=== PATIENT | female | born 1960 | race Caucasian/White ===

== ENCOUNTER 2016-09-05 17:39 | Emergency (ER) | payer MEDICAID ==
[~2016-09-05] VITALS: Ht 167.6 cm; Wt 87.0 kg
[~2016-09-05 17:39] MED LIST: CEPH-368 PO; CYCL5TAB PO; DULO20CA45 PO; FLUO10CA13 PO; FLUO20CA19 PO; HYDR1TAB12 PO; LEVO200T PO; MELO-190 PO; METH4TAB2 PO; OXYC-229 PO; OXYC-302 PO; TRAZ50TA18 PO
[2016-09-05] MEDS ORDERED: DIPHENHYDRAMINE 50 MG/ML, 1ML IVPush ONE (18:00)
[2016-09-05] MEDS ORDERED: SODIUM CHLORIDE FLUSH 10ML SYR IVF ONE (18:00)
[2016-09-05] MEDS ORDERED: ALBUTEROL SULFATE 2.5 MG/3 ML NPPB ONE (18:00)
[2016-09-05] MEDS ORDERED: methylPREDNISolone SOD SUCC 125 MG/2 ML IVPush ONE (18:00)
[2016-09-05] MEDS ORDERED: EPINEPHRINE 1 MG/ML, 1ML IM ONE (18:00)
[2016-09-05] MEDS ORDERED: FAMOTIDINE 20 MG/2 ML IVPush ONE (18:00)
[2016-09-05] MEDS ORDERED: ALBUTEROL SULFATE 2.5 MG/3 ML ONE (18:05)
[2016-09-05] MEDS ORDERED: DIPHENHYDRAMINE 50 MG/ML, 1ML ONE (18:23)
[2016-09-05] MEDS ORDERED: FAMOTIDINE 20 MG/2 ML ONE (18:23)
[2016-09-05] MEDS ORDERED: methylPREDNISolone SOD SUCC 125 MG/2 ML ONE (18:23)
[2016-09-05] MEDS ORDERED: EPINEPHRINE 1 MG/ML, 1ML ONE (18:26)
[2016-09-05] MEDS ORDERED: ALBUTEROL/IPRATROPIUM 2.5MG/0.5MG, 3 ML ONE (19:13)
[2016-09-05 20:16] VITALS: BP 115/68
== END 2016-09-05 20:19 | disposition home or self-care (01) ==
LOC: ED 20:00
DX: T78.40XA Allergy, unspecified, initial encounter (principal); Z88.0 Allergy status to penicillin; E07.9 Disorder of thyroid, unspecified; Y92.9 Unspecified place or not applicable
CPT/HCPCS: 71010; 93005; 96372; 96374; 96375; 99284; J0171; J1200; J2930; J7613; S0028

== ENCOUNTER 2017-09-12 04:52 | Emergency (ER) | payer MEDICARE, MEDICAID ==
[~2017-09-12] VITALS: Ht 167.6 cm; Wt 90.0 kg
[~2017-09-12 04:52] MED LIST changes: -MELO-190 PO; +MELO7.5T31 PO; -OXYC-229 PO; +OXYC-307 PO
[2017-09-12 04:55] VITALS: BP 135/85
== END 2017-09-12 07:48 | disposition home or self-care (01) ==
LOC: ED 06:06
DX: S63.502A Unspecified sprain of left wrist, initial encounter (principal); S60.012A Contusion of left thumb without damage to nail, initial encounter; S80.02XA Contusion of left knee, initial encounter; W01.0XXA Fall on same level from slipping, tripping and stumbling without subsequent striking against object, initial encounter; Y93.89 Activity, other specified; Y99.8 Other external cause status; Y92.009 Unspecified place in unspecified non-institutional (private) residence as the place of occurrence of the external cause
CPT/HCPCS: 99284

== ENCOUNTER → 2018-06-27 | Outpatient (CLI) | payer MEDICARE, MEDICAID ==
[~2018-06-27] MED LIST changes: +CHOL2000 PO; +DULO30CA2 PO; -HYDR1TAB12 PO; +HYDR1TAB13 PO; +LAMO50TA3 PO; -TRAZ50TA18 PO; +TRAZ50TA66 PO
[2018-06-27 13:49] LABS: BASOPHILS # (AUTO) 0.15 x10^3/uL (0-0.1); BASOPHILS % (AUTO) 2 % (0-1); EOSINOPHILS % (AUTO) 1 % (1-7); LYMPHOCYTES # (AUTO) 2.14 x10^3/uL (1-3.4); LYMPHOCYTES % (AUTO) 26 % (22-44); MD NO; MEAN CORPUSCULAR HEMOGLOBIN 32.1 pg (27.0-34.8); MEAN CORPUSCULAR HGB CONC 34.6 g/dL (32.4-35.8); MEAN PLATELET VOLUME 7.9 fL (7.4-10.4); MONOCYTES # (AUTO) 0.65 x10^3/uL (0.2-0.8); MONOCYTES % (AUTO) 8 % (2-9); NEUTROPHILS # (AUTO) 5.28 x10^3/uL (1.8-6.8); NEUTROPHILS % (AUTO) 64 % (42-75); PLATELET COUNT 340 x10^3/uL (130-400); RED BLOOD COUNT 4.88 x10^6/uL (3.82-5.3); RED CELL DISTRIBUTION WIDTH 13.5 % (9.6-15.2)
[2018-06-27 13:59] LABS: INTERNATIONAL NORMALIZED RATIO 0.95 (0.93-1.1)
[2018-06-27 14:01] LABS: ALBUMIN 3.9 g/dL (3.4-5.0); ANION GAP 4 mmol/L (5-15); CALCIUM 9.9 mg/dL (8.5-10.1); CHLORIDE 111 mmol/L (98-107)
[2018-06-27 14:05] LABS: ALANINE AMINOTRANSFERASE 29 U/L (12-78); ALKALINE PHOSPHATASE 99 U/L (45-117); BILIRUBIN,TOTAL 1.2 mg/dL (0.2-1.0); CREATININE 0.65 mg/dL (0.55-1.02); TOTAL PROTEIN 7.4 g/dL (6.4-8.2)
[2018-06-27 14:12] LABS: HEMOGLOBIN A1C 5.7 % (4.2-6.3)
== END | disposition home or self-care (01) ==
LOC: STAR 12:39
PROVIDERS: ATTEND Orthopaedic Surgery
DX: Z01.818 Encounter for other preprocedural examination (principal); M16.0 Bilateral primary osteoarthritis of hip
CPT/HCPCS: 36415; 80053; 83036; 85025; 85610; 85730; 87081; 87806; 93005; G0475

== ENCOUNTER 2018-07-01 09:05 | Inpatient (IN) | payer MEDICARE, MEDICAID ==
[~2018-07-01] VITALS: Ht 167.6 cm; Wt 90.0 kg
[~2018-07-01 09:05] MED LIST changes: -CHOL2000 PO; +EPINEPHRINE 1 MG/ML, 1ML ONE; +KETOROLAC 60 MG/2 ML ONE; +ROPIvacaine/PF 0.2%, 20 ML ONE; +SODIUM CHLORIDE 0.9% 50 ML ONE; +TRANEXAMIC ACID 100 MG/ML, 10ML ONE
[2018-07-01] MEDS ORDERED: ACETAMINOPHEN 500 MG TABLET PO STA (09:38)
[2018-07-01] MEDS ORDERED: LACTATED RINGERS 1,000 ML IV SCH (09:38)
[2018-07-01] MEDS ORDERED: GABAPENTIN 300 MG CAPSULE PO STA (09:38)
[2018-07-01] MEDS ORDERED: CHOL2000 PO (09:42)
[2018-07-01] MEDS ORDERED: FENTANYL PF 250 MCG/5ML ONE (10:25)
[2018-07-01] MEDS ORDERED: MIDAZOLAM 1 MG/ML, 2ML ONE (10:25)
[2018-07-01] MEDS ORDERED: DEXAMETHASONE 4 MG/ML, 1ML ONE (10:26)
[2018-07-01] MEDS ORDERED: CEFAZOLIN 1,000 MG ONE (10:26)
[2018-07-01] MEDS ORDERED: GLYCOPYRROLATE 0.2MG/1ML, 5ML ONE (10:26)
[2018-07-01] MEDS ORDERED: PROPOFOL 10 MG/ML, 20ML ONE (10:26)
[2018-07-01] MEDS ORDERED: LIDOCAINE 4%, 4 ML SYR/CANN TP ONE (10:27)
[2018-07-01] MEDS ORDERED: ONDANSETRON 2MG/ML, 2ML ONE (10:27)
[2018-07-01] MEDS ORDERED: SUCCINYLCHOLINE 20 MG/ML, 10ML ONE (10:27)
[2018-07-01] MEDS ORDERED: NEOSTIGMINE 1 MG/ML, 10ML ONE (10:27)
[2018-07-01] MEDS ORDERED: ROCURONIUM 10MG/ML,5ML ONE (10:27)
[2018-07-01] MEDS ORDERED: ONDANSETRON 2MG/ML, 2ML IV PRN (11:30)
[2018-07-01] MEDS ORDERED: ONDANSETRON ODT 8 MG PO PRN (11:30)
[2018-07-01] MEDS ORDERED: LORazepam 2 MG/ML, 1ML IVPush PRN (11:30)
[2018-07-01] MEDS ORDERED: PROMETHAZINE 25 MG/ML, 1ML IV PRN (11:30)
[2018-07-01] MEDS ORDERED: OXYcodone 5 MG/5 ML ORAL.SOL UDC PO PRN (11:30)
[2018-07-01] MEDS ORDERED: DIAZEPAM 5 MG/ML, 2ML IVPush PRN (11:30)
[2018-07-01] MEDS ORDERED: ALBUTEROL HFA 90 MCG/SPRAY ONE (12:17)
[2018-07-01] MEDS ORDERED: OXYcodone 5 MG/5 ML ORAL.SOL UDC ONE (13:17)
[2018-07-01] MEDS ORDERED: FENTANYL PF 100 MCG/2ML ONE ×2 (13:17→14:00)
[2018-07-01] MEDS: FENTANYL PF 100 MCG/2ML IV PRN ×4 (13:20→14:12)
[2018-07-01] MEDS ORDERED: ACETAMINOPHEN 650 MG/20.3 ML UDC PO PRN (13:30)
[2018-07-01] MEDS ORDERED: ALUMINUM/MAG/SIMETHICONE 30 ML UDC PO PRN (13:30)
[2018-07-01] MEDS ORDERED: HOLD MEDICATION MC PRN (13:30)
[2018-07-01] MEDS ORDERED: DIPHENHYDRAMINE 50 MG CAPSULE PO PRN (13:30)
[2018-07-01] MEDS: ACETAMINOPHEN 325 MG TABLET PO SCH ×3 (13:30→23:13)
[2018-07-01] MEDS ORDERED: DIPHENHYDRAMINE 50 MG/ML, 1ML IVPush PRN (13:30)
[2018-07-01] MEDS ORDERED: ONDANSETRON 2MG/ML, 2ML IVPush PRN (13:30)
[2018-07-01] MEDS ORDERED: MAGNESIUM HYDROXIDE 8%, 30ML UDC PO PRN (13:30)
[2018-07-01] MEDS ORDERED: PROMETHAZINE 12.5 MG SUPP PR PRN (13:30)
[2018-07-01] MEDS ORDERED: PSYLLIUM PACKET PO PRN (13:30)
[2018-07-01] MEDS ORDERED: ONDANSETRON 4 MG TABLET PO PRN (13:30)
[2018-07-01] MEDS ORDERED: TRANEXAMIC ACID 1,000 MG in SODIUM CHLORIDE 0.9% 100 ML IVPB ONE (13:30)
[2018-07-01] MEDS ORDERED: SENNA/DOCUSATE TABLET PO PRN (13:30)
[2018-07-01] MEDS ORDERED: PROMETHAZINE 25 MG/ML, 1ML IM PRN (13:30)
[2018-07-01] MEDS ORDERED: HYDROmorphone 2 MG/ML, 1ML ONE ×2 (13:31→19:25)
[2018-07-01] MEDS: HYDROmorphone 2 MG/ML, 1ML IVPush PRN ×4 (13:32→14:18)
[2018-07-01] MEDS: HYDROmorphone 1 MG/ML, 1ML INJ IVPush PRN ×2 (13:35→19:32)
[2018-07-01] MEDS: D5%-0.45NACL+KCL 20MEQ 1,000 ML IV SCH (15:25)
[2018-07-01] MEDS: KETOROLAC 30 MG/1 ML IV SCH ×2 (15:26→23:13)
[2018-07-01] MEDS: OXYcodone IR 5MG TABLET PO PRN ×2 (17:20→23:13)
[2018-07-01 18:40] VITALS: BP 97/62
[2018-07-01] MEDS: CEFAZOLIN PMX 1GM/50ML 50 ML IVPB SCH (19:31)
[2018-07-01] MEDS: ASPIRIN 81 MG TABLET EC PO SCH (19:31)
[2018-07-01] MEDS: DOCUSATE 100 MG CAPSULE PO SCH (19:31)
[2018-07-01] MEDS ORDERED: GABAPENTIN 300 MG CAPSULE PO SCH (21:00)
[2018-07-02] MEDS: D5%-0.45NACL+KCL 20MEQ 1,000 ML IV SCH (00:56)
[2018-07-02 01:01] VITALS: BP 90/57
[2018-07-02] MEDS: OXYcodone IR 5MG TABLET PO PRN ×2 (03:50→08:34)
[2018-07-02] MEDS: CEFAZOLIN PMX 1GM/50ML 50 ML IVPB SCH (03:50)
[2018-07-02] MEDS: ACETAMINOPHEN 325 MG TABLET PO SCH ×2 (03:50→08:34)
[2018-07-02 03:53] VITALS: BP 100/51
[2018-07-02] MEDS: KETOROLAC 30 MG/1 ML IV SCH (05:51)
[2018-07-02] MEDS ORDERED: DEXAMETHASONE 4 MG/ML, 1ML IVPush ONE (06:00)
[2018-07-02 08:30] VITALS: BP 104/55
[2018-07-02] MEDS: ASPIRIN 81 MG TABLET EC PO SCH (08:33)
[2018-07-02] MEDS: DOCUSATE 100 MG CAPSULE PO SCH (08:34)
[2018-07-02] MEDS ORDERED: TAMSULOSIN 0.4 MG CAP.ER.24H PO SCH (09:00)
[2018-07-02 10:56] VITALS: BP 105/58
== END 2018-07-02 11:29 | disposition home or self-care (01) | DRG 470 ==
LOC: ORIP 09:05 → 4NOR 14:38 → DCLOUNGE 07-02 11:18
PROVIDERS: ADMIT Orthopaedic Surgery; ATTEND Orthopaedic Surgery
PROC: 0SRB03Z Replacement of Left Hip Joint with Ceramic Synthetic Substitute, Open Approach (ICD-10-PCS; principal; 2018-07-01 11:15)
DX: M16.12 Unilateral primary osteoarthritis, left hip (principal); J44.9 Chronic obstructive pulmonary disease, unspecified; Z88.0 Allergy status to penicillin; Z88.5 Allergy status to narcotic agent; Z88.6 Allergy status to analgesic agent
CPT/HCPCS: 36415; 72170; 85014; 85018; 86850; 86900; C1713; G0378; J0171; J0690; J1100; J1170; J1885; J2250; J2405; J2704; J2710; J2795; J3010; J3360; C1776; J0330; J1200; J3480; J7120

== ENCOUNTER 2020-11-04 09:58 | Outpatient (CLI) | payer MEDICARE, MEDICAID ==
[~2020-11-04 09:58] MED LIST changes: +CHOL2000 PO; +CHOL200052 PO; -EPINEPHRINE 1 MG/ML, 1ML ONE; -KETOROLAC 60 MG/2 ML ONE; +LAMO25TA52 PO; +LEVO200T5 PO; +LORA0.5T PO; +MELO15TA24 PO; -OXYC-302 PO; -OXYC-307 PO; +OXYC-380 PO; +OXYC1TAB14 PO; -ROPIvacaine/PF 0.2%, 20 ML ONE; -SODIUM CHLORIDE 0.9% 50 ML ONE; -TRANEXAMIC ACID 100 MG/ML, 10ML ONE
== END 2020-11-04 23:59 | disposition home or self-care (01) ==
LOC: CFH 09:58
PROVIDERS: ATTEND Nurse Practitioner Critical Care Medicine
DX: M50.13 Cervical disc disorder with radiculopathy, cervicothoracic region (principal); M48.02 Spinal stenosis, cervical region
CPT/HCPCS: 72125